=== PATIENT | female | born 1940 | race American Indian/Alaskan Native ===

== ENCOUNTER 2017-06-06 21:32 | Outpatient (CLI) | payer MEDICARE ==
--- NOTE | 2017-06-07 09:39 | XRay Report ---
AP ABDOMEN: History: Abdominal pain, constipation. There is gas mixed with stool throughout the colon. There are no dilated loops of bowel or air-fluid levels. There is no free intraperitoneal gas. Lower lumbar fusion changes are noted. IMPRESSION: Fecal retention.
== END 2017-06-06 21:33 | disposition home or self-care (01) ==
LOC: XRAY 21:32
PROVIDERS: ATTEND Internal Medicine
DX: K59.00 Constipation, unspecified (principal); M43.26 Fusion of spine, lumbar region; I13.0 Hypertensive heart and chronic kidney disease with heart failure and stage 1 through stage 4 chronic kidney disease, or unspecified chronic kidney disease; I50.9 Heart failure, unspecified; N18.3 Chronic kidney disease, stage 3 (moderate); E78.5 Hyperlipidemia, unspecified
CPT/HCPCS: 74000